=== PATIENT | female | born 2000 | race Caucasian/White ===

== ENCOUNTER 2022-10-09 22:17 | Emergency (ER) | payer SELFPAY ==
[~2022-10-09] VITALS: Ht 165.1 cm; Wt 114.3 kg
[2022-10-09 22:55] VITALS: BP 124/77
--- NOTE | 2022-10-10 00:37 | NUR ---
PT TAKEN TO BED 7
--- NOTE | 2022-10-10 01:25 | NUR ---
Female Pathology Laboratory Aides Teacher accompanied female patient for Pelvic Exam WITH .
[2022-10-10 01:45] VITALS: BP 111/77
--- NOTE | 2022-10-10 01:45 | NUR ---
Patient discharged with v/s stable. Written and verbal after care instructions given and explained. Patient verbalized understanding. Ambulatory with steady gait. All questions addressed prior to discharge. Advised to follow up with PMD.
== END 2022-10-10 01:45 | disposition home or self-care (01) ==
LOC: MED 22:17
DX: N93.9 Abnormal uterine and vaginal bleeding, unspecified (principal)
CPT/HCPCS: 81025; 99284